=== PATIENT | female | born 1950 | race Two or more races ===

== ENCOUNTER → 2018-12-26 14:44 | Outpatient (CLI) | payer OTHER | END | disposition home or self-care (01) | LOC: EKG 14:44 | DX: N90.1 Moderate vulvar dysplasia (principal); D64.89 Other specified anemias; N39.0 Urinary tract infection, site not specified; Z01.818 Encounter for other preprocedural examination; R97.1 Elevated cancer antigen 125 [CA 125]; Z01.810 Encounter for preprocedural cardiovascular examination ==

== ENCOUNTER 2019-01-02 07:05 | Day surgery (SDC) | payer OTHER ==
[~2019-01-02 07:05] MED LIST: ASA81 MG PO; COZAAR100 MG PO; PRAVASTATIN SOD20 MG PO
== END 2019-01-02 16:15 | disposition home or self-care (01) ==
LOC: CIR.AMB 07:05
DX: D28.0 Benign neoplasm of vulva (principal)

== ENCOUNTER 2022-01-20 06:38 | Day surgery (SDC) | payer OTHER ==
[~2022-01-20 06:38] MED LIST changes: +AVAPRO300 MG PO; +PREVACID30 MG; +[UNRECOGNIZED DRUG - OTHER] PO
== END 2022-01-20 18:00 | disposition home or self-care (01) ==
LOC: CIR.AMB 06:38
PROVIDERS: ATTEND Surgery
DX: C50.412 Malignant neoplasm of upper-outer quadrant of left female breast (principal); I10 Essential (primary) hypertension; E03.9 Hypothyroidism, unspecified; M51.36 Other intervertebral disc degeneration, lumbar region; M50.30 Other cervical disc degeneration, unspecified cervical region; Z20.822 Contact with and (suspected) exposure to COVID-19